=== PATIENT | female | born 1975 | race Caucasian/White ===

== ENCOUNTER 2022-07-06 15:53 | Outpatient (CLI) | payer BC | END 2022-07-06 15:54 | disposition home or self-care (01) | LOC: BICRAD 15:53 | PROVIDERS: ATTEND Family Medicine | DX: M47.22 Other spondylosis with radiculopathy, cervical region (principal) | CPT/HCPCS: 72040 ==

== ENCOUNTER 2025-08-04 07:08 | Outpatient (CLI) | payer BC, SELFPAY | END 2025-08-04 07:09 | disposition home or self-care (01) | LOC: SCSRAD 07:08 | PROVIDERS: ATTEND Family Medicine | DX: M25.562 Pain in left knee (principal) ==

== ENCOUNTER 2025-08-14 07:49 | Outpatient (CLI) | payer BC | END 2025-08-14 07:50 | disposition home or self-care (01) | LOC: SCSBT 07:49 | PROVIDERS: ATTEND Physician Assistant | DX: M85.89 Other specified disorders of bone density and structure, multiple sites (principal) | CPT/HCPCS: 77080 ==

== ENCOUNTER 2025-08-29 13:47 | Outpatient (CLI) | payer BC | END 2025-08-29 13:48 | disposition home or self-care (01) | LOC: SCSMRI 13:47 | PROVIDERS: ATTEND Orthopaedic Surgery | DX: S83.242A Other tear of medial meniscus, current injury, left knee, initial encounter (principal); M94.262 Chondromalacia, left knee ==